=== PATIENT | female | born 1970 | race Caucasian/White ===

== ENCOUNTER → 2020-06-07 12:47 | Outpatient (CLI) | payer OTHER, SELFPAY ==
--- NOTE | ~2020-06-07 | MR_ITS ---
EXAMINATION: MR brain/brain stem wo/w con DATE: 06/07/2020 13:45 INDICATION: Numbness of the hands and feet. Multiple sclerosis. TECHNIQUE: Magnetic resonance imaging (MRI) of the brain and brainstem was performed without and with 13 mL MultiHance intravenous contrast. Sequences included sagittal and axial T1-weighted FLAIR, axia l T1-weighted FSE, axial diffusion-weighted FS EPI, sagittal T2-weighted FLAIR, axial T2*-weighted GR E, axial T2-weighted FLAIR Propeller, and axial T2-weighted Propeller. Postcontrast sequences include d axial, coronal, and sagittal T1-weighted FSE. Apparent diffusion coefficient (ADC) maps were create d. COMPARISON: None. FINDINGS: There is no intracranial hemorrhage, acute infarction, or abnormal intracranial mass lesion . The ventricles are normal in size. The orbits are normal. The paranasal sinuses are clear. The mast oid air cells are normal. IMPRESSION: 1. Normal brain. Reviewed, dictated and finalized at location A. IMPRESSION: 1. Normal brain.
[2020-06-07 13:15] LABS: Estimated Glomerular Filt Rate > 60
== END ==
PROVIDERS: PCP Internal Medicine; Visit Provider Internal Medicine
DX: R20.0 Anesthesia of skin (principal); R20.2 Paresthesia of skin
CPT/HCPCS: 70553; A9577

== ENCOUNTER → 2020-09-12 14:02 | Outpatient (CLI) | payer OTHER, SELFPAY ==
--- NOTE | ~2020-09-12 | MR_ITS ---
EXAMINATION: MR pelvis wo/w con DATE: 09/12/2020 15:23 INDICATION: Left pelvic pain. TECHNIQUE: Magnetic resonance imaging (MRI) of the pelvis was performed without and with 13 mL MultiH ance intravenous contrast. Sequences included coronal and axial T2-weighted FS FSE, axial T1-weighted FS FSE, axial LAVA, coronal FS FIESTA, coronal LAVA-flex, axial T2-weighted FSE, axial dual-echo T1- weighted FSPGR, axial FS FIESTA, axial DWI, and small [id number] sagittal, coronal, and axial T2-w eighted FSE. Postcontrast sequences included coronal LAVA-flex and a time course of axial LAVA. COMPARISON: None. FINDINGS: The uterus is normal in morphology. There is a 1.2 cm hemorrhagic cyst in right ovary. There is a 6.3 cm hemorrhagic cyst in left ovary. No solid enhancing component. There are no pathologically enlarge d lymph nodes. There is no free intraperitoneal fluid. IMPRESSION: 1. 6.3 cm hemorrhagic cyst in left ovary. Follow-up ultrasound is recommended in 6-12 weeks. Reviewed, dictated and finalized at location B. T TRIMMER PIPE BOWLS IMPRESSION: 1. 6.3 cm hemorrhagic cyst in left ovary. Follow-up ultrasound is recommended i n 6-12 weeks.
[2020-09-12 14:46] LABS: Estimated Glomerular Filt Rate > 60
== END ==
DX: R10.9 Unspecified abdominal pain (principal); N83.202 Unspecified ovarian cyst, left side
CPT/HCPCS: 72197; A9577

== ENCOUNTER → 2022-07-17 10:18 | Outpatient (CLI) | payer OTHER, SELFPAY ==
--- NOTE | ~2022-07-17 | MM_ITS ---
EXAMINATION: MM screening [facility] BI w [facility] a HISTORY: Screening TECHNIQUE: Craniocaudal and mediolateral oblique 3-D tomosynthesis images were obtained and synthetic 2-D images were generated. CAD analysis was submitted and interpreted. COMPARISON: No prior mammogram is available for comparison at this institution. BREAST PARENCHYMAL COMPOSITION: There are scattered areas of fibroglandular density. FINDINGS: There is no evidence of suspicious mass, calcification, or architectural distortion to sugg est malignancy in either breast. There has been no suspicious interval change. IMPRESSION: 1. No mammographic evidence of malignancy. 2. Recommend routine screening mammography in one year. BI-RADS Category 1: Negative Reviewed, dictated and finalized at location A.
== END ==
PROVIDERS: PCP Internal Medicine; Visit Provider Internal Medicine
DX: Z12.31 Encounter for screening mammogram for malignant neoplasm of breast (principal)
CPT/HCPCS: 77063; 77067

== ENCOUNTER 2022-12-26 10:00 | Emergency (ER) | payer OTHER, SELFPAY ==
--- NOTE | 2022-12-26 10:02 | ED.URI ---
HPI - URI/Sore Throat General Chief Complaint: Dental/Oral Stated Complaint: Sore Mouth/Rash Time Seen by Provider: 12/26/22 10:01 Source: patient Mode of arrival: ambulatory Limitations: no limitations History of Present Illness HPI Narrative: Nathaly is a 52-year-old female patient presenting to the clinic today complaining of a rash on her left side chest and possible thrush in her mouth. She reports thrush symptoms started this morning. Woke up this morning and stated that her throat was very dry. Also has an itchy rash to her left chest wall. Is taking Pepcid for the rash. States she was seen by her PCP last week and given Pepcid as a thought that she was having hives. MD elicited complaint: sore throat and nasal congestion Related Data Home Medications Medication Instructions Recorded Confirmed famotidine 20 mg tablet (Pepcid) 20 mg PO BID 12/26/22 12/26/22 lisinopril 10 mg tablet 10 mg PO DAILY 12/26/22 12/26/22 Allergies Allergy/AdvReac Type Severity Reaction Status Date / Time omeprazole AdvReac Intermediate Numbness Verified 12/26/22 10:16 codeine AdvReac Mild Hives Verified 12/26/22 10:16 shellfish derived AdvReac Mild Hives Verified 12/26/22 10:16 Review of Systems Review of Systems: Pertinent positives per HPI. Patient denies any fever, chills, headache, visual changes, dizziness, cough, runny nose, sore throat, shortness of breath, chest pain, palpitations, nausea, vomiting, diarrhea, constipation, abdominal pain, or any urinary issues. PMFSH Comments At the time of my signature, I reviewed and agree with the nursing past medical, surgical, social, and family history. There is no relevant family history pertinent to the patient complaint. Exam Narrative: General: Well-developed, well nourished, in no apparent distress Head: Normocephalic, atraumatic Eyes: Pupils equally round and reactive to light bilaterally, EOM intact, sclera and conjunctive clear, no discharge, lids normal Ears: TMs intact and clear, ear canals clear, no drainage, grossly hearing normal. Nose: Nares patent, no discharge, no inflammation, no sinus tenderness. Mouth: Oropharynx without lesions or masses, good dentition, MMM. Slightly raise creamy yellow/white patches on tongue Neck: Supple, trachea midline, no enlargement of anterior or posterior cervical nodes, no thyroid masses or goiter palpable. Cardio: Regular rate and rhythm, s1 and s2 normal, no murmur appreciated. Resp: Clear to auscultation bilaterally anteriorly and posteriorly, no rhonchi, rales, wheezing or rubs Skin: Intact, pink, warm, dry without lesions or masses, red raised scaly itchy rash to the left chest Course Course Emergency Course: Portions of this record may have been created with voice recognition software. Level of Care: Express Care Visit Vital Signs Vital signs: Vital Signs Temperature 36.9 C 12/26/22 10:08 Pulse Rate 73 12/26/22 10:08 Respiratory Rate 16 12/26/22 10:08 Blood Pressure 151/83 H 12/26/22 10:08 Pulse Oximetry 99 12/26/22 10:08 Oxygen Delivery Room Air 12/26/22 10:08 Temperature 36.9 C 12/26/22 10:08 Pulse Rate 73 12/26/22 10:08 Respiratory Rate 16 12/26/22 10:08 Blood Pressure 151/83 H 12/26/22 10:08 Pulse Oximetry 99 12/26/22 10:08 Oxygen Delivery Room Air 12/26/22 10:08 Vital signs reviewed MDM - URI/Sore Throat MDM Narrative Medical decision making narrative: At the time of the patient is resting comfortably on the exam table. I suspect patient has dermatitis and oral thrush. Will send in prescription for nystatin swish and swallow as well as triamcinolone cream to apply to the dermatitis. Supportive measures were discussed with the patient she voiced understanding of discharge instructions and agrees to treatment plan. Differential Diagnosis Differential diagnosis: Likely upper respiratory infection, sinusitis, viral infection, bronchitis, influenza, pharyngitis and ot
[2022-12-26 10:08] VITALS: BP 151/83; PULSE 73; RESP 16; TEMP 36.9; O2SAT 99
== END 2022-12-26 10:22 | disposition home or self-care (01) ==
PROVIDERS: Emergency Provider Nurse Practitioner Family; PCP Internal Medicine
DX: B37.0 Candidal stomatitis (principal); L30.9 Dermatitis, unspecified; I10 Essential (primary) hypertension; K21.9 Gastro-esophageal reflux disease without esophagitis; M19.90 Unspecified osteoarthritis, unspecified site
CPT/HCPCS: 99203; G0463